=== PATIENT | male | born 1940 | race Caucasian/White ===

== ENCOUNTER 2016-06-04 11:07 | Emergency (ER) | payer SELFPAY ==
[2016-06-04 13:23] LABS: RED BLOOD COUNT 4.99 M/UL (4.20-5.50); WHITE BLOOD COUNT 10.6 K/UL (4.5-11.0)
== END 2016-06-04 16:35 | disposition home or self-care (01) ==
LOC: ER1 11:07
PROVIDERS: Emergency Medicine
DX: N13.2 Hydronephrosis with renal and ureteral calculous obstruction (principal); I10 Essential (primary) hypertension
CPT/HCPCS: 36415; 80053; 81001; 82150; 83690; 84484; 85025; 96374; 99284; J1885

== ENCOUNTER 2016-06-06 09:52 | Emergency (ER) | payer MEDICARE, SELFPAY ==
[2016-06-06 12:15] LABS: HEMOGLOBIN 13.4 gm/dl (14.0-17.5)
[2016-06-06 12:18] LABS: RED BLOOD COUNT 4.41 M/UL (4.20-5.50); WHITE BLOOD COUNT 6.4 K/UL (4.5-11.0)
== END 2016-06-06 19:05 | disposition short-term general hospital (02) ==
LOC: ER1 09:52
PROVIDERS: Emergency Medicine
DX: N19 Unspecified kidney failure (principal); N13.2 Hydronephrosis with renal and ureteral calculous obstruction; D64.9 Anemia, unspecified; D69.6 Thrombocytopenia, unspecified; I10 Essential (primary) hypertension; E11.9 Type 2 diabetes mellitus without complications; I25.2 Old myocardial infarction; Z95.5 Presence of coronary angioplasty implant and graft; Z96.641 Presence of right artificial hip joint; Z88.0 Allergy status to penicillin; Z88.5 Allergy status to narcotic agent; Z91.041 Radiographic dye allergy status
CPT/HCPCS: 36415; 80053; 81001; 85025; 96361; 96374; 96375; 99283; J2405

== ENCOUNTER 2021-05-12 09:14 | Emergency (ER) | payer MEDICARE ==
[~2021-05-12 09:14] MED LIST: ASPIRIN CHEWABL81 MG PO; DECADRON6 MG PO; ELIQUIS 2.5 MG2.5 MG PO; GABAPENTIN300 MG PO; GLIPIZIDE ER10 MG PO; JANUVIA100 MG PO; OMEPRAZOLE20 MG PO; PERCOCET 10-321 EACH PO; PERCOCET 7.5-31 EACH PO; PHENERGAN 25 MG25 M1 PO; PLAVIX 75 MG TA75 MG PO; PRINIVIL20 MG PO; PROTONIX 20 MG20 MG PO; VISTARIL25 MG PO; XANAX0.5 MG PO
[2021-05-12 10:08] LABS: HEMOGLOBIN 13.6 gm/dl (14.0-17.5); RED BLOOD COUNT 4.2 M/UL (4.20-5.50); WHITE BLOOD COUNT 7.2 K/UL (4.5-11.0)
[2021-05-12 10:41] LABS: BUN/CREATININE RATIO 25 (0-10)
== END 2021-05-12 11:56 | disposition home or self-care (01) ==
LOC: ER1 09:14
PROVIDERS: Preventive Medicine Occupational Medicine
DX: U07.1 COVID-19 (principal); I10 Essential (primary) hypertension; E11.9 Type 2 diabetes mellitus without complications
CPT/HCPCS: 0240U; 70450; 71045; 80053; 83605; 83880; 85025; 85652; 86140; 93005; 96374; 99284; C9113

== ENCOUNTER 2021-06-26 21:48 | Inpatient (IN) | payer MEDICARE ==
[~2021-06-26] VITALS: Ht 170.2 cm; Wt 64.4 kg
[~2021-06-26 21:48] MED LIST changes: +LISINOPRIL20 MG PO; -PRINIVIL20 MG PO
[2021-06-27 00:34] LABS: HEMOGLOBIN 11.8 gm/dl (14.0-17.5); RED BLOOD COUNT 4.03 M/UL (4.20-5.50); WHITE BLOOD COUNT 16.5 K/UL (4.5-11.0)
[2021-06-27 01:06] LABS: BUN/CREATININE RATIO 28 (0-10)
[2021-06-27] MEDS ORDERED: DONEPEZIL HCL5 MG PO (10:57)
[2021-06-27] MEDS ORDERED: OXYBUTYNIN CHLOR5 MG PO (10:58)
[2021-06-27] MEDS ORDERED: FLOMAX 0.4 MG0.4 MG PO (10:59)
[2021-06-27] MEDS ORDERED: GLUCAGON EMERGEN1 MG INJ (11:01)
[2021-06-27] MEDS ORDERED: LEVEMIR FL100 UNIT/1 SQ (11:02)
[2021-06-27] MEDS ORDERED: SUCRALFATE1 GM GT (11:06)
[2021-06-27] MEDS ORDERED: JANUVIA100 MG PO (11:07)
[2021-06-27] MEDS ORDERED: LORATADINE10 MG PO (11:07)
[2021-06-27] MEDS ORDERED: PREVACID 30 MG30 MG GT (11:09)
[2021-06-27] MEDS ORDERED: ASPIRIN EC81 MG GT (11:10)
[2021-06-27] MEDS ORDERED: MECLIZINE HCL25 MG PO (11:10)
[2021-06-27] MEDS ORDERED: MIRALAX 119 GR119 GM GT (11:11)
[2021-06-27] MEDS ORDERED: PROTONIX 40 MG40 M1 PO (11:30)
[2021-06-28 06:30] LABS: RED BLOOD COUNT 3.79 M/UL (4.20-5.50)
[2021-06-28 06:34] LABS: WHITE BLOOD COUNT 5.2 K/UL (4.5-11.0)
[2021-06-28 06:55] LABS: BUN/CREATININE RATIO 23 (0-10)
[2021-06-29 05:10] LABS: HBSAG SCREEN Negative (Negative); HCV AB <0.1 (0.0-0.9); HEP A AB, IGM Negative (Negative); HEP B CORE AB, IGM Negative (Negative)
[2021-06-29] MEDS ORDERED: LISINOPRIL20 MG PO (14:28)
== END 2021-06-29 16:59 | disposition home or self-care (01) | DRG 872 ==
LOC: ER1 21:48 → CDU 06-27 03:06 → MED SURG 4 06-27 21:12
PROVIDERS: Internal Medicine; Nurse Practitioner; ADMIT Internal Medicine
DX: A41.9 Sepsis, unspecified organism (principal); Z20.822 Contact with and (suspected) exposure to COVID-19; K81.0 Acute cholecystitis; K29.80 Duodenitis without bleeding; R74.01 Elevation of levels of liver transaminase levels; E83.59 Other disorders of calcium metabolism; Z96.641 Presence of right artificial hip joint; R91.1 Solitary pulmonary nodule; I25.10 Atherosclerotic heart disease of native coronary artery without angina pectoris; R13.10 Dysphagia, unspecified; E83.42 Hypomagnesemia; I12.9 Hypertensive chronic kidney disease with stage 1 through stage 4 chronic kidney disease, or unspecified chronic kidney disease; E11.22 Type 2 diabetes mellitus with diabetic chronic kidney disease; N18.9 Chronic kidney disease, unspecified; E11.9 Type 2 diabetes mellitus without complications; Z82.49 Family history of ischemic heart disease and other diseases of the circulatory system; Z79.4 Long term (current) use of insulin; Z95.5 Presence of coronary angioplasty implant and graft; Z87.01 Personal history of pneumonia (recurrent); Z93.1 Gastrostomy status; Z79.01 Long term (current) use of anticoagulants; Z79.82 Long term (current) use of aspirin; Z98.890 Other specified postprocedural states; Z88.0 Allergy status to penicillin; Z88.6 Allergy status to analgesic agent; Z91.041 Radiographic dye allergy status
CPT/HCPCS: 0240U; 36600; 71045; 71250; 76705; 80053; 80074; 81001; 82550; 82553; 82803; 82962; 83605; 83735; 84100; 84439; 84443; 84484; 85025; 87040; 87086; 93005; 96374; 96375; 99285; C9113; J0696; J1650; J7030